=== PATIENT | male | born 1955 | race Caucasian/White ===

== ENCOUNTER 2018-05-17 06:20 | Inpatient (IN) ==
[2018-05-17] MEDS ORDERED: CeFAZolin Syr 2,000MG/20 ML 2,000 MG/20 ML SYRINGE IVPB ONE (06:57)
[2018-05-17] MEDS ORDERED: Ringers Solution, Lactated 1,000 ML IVC SCH ×2 (07:00→11:25)
[2018-05-17] MEDS ORDERED: Acetaminophen IV 1,000 MG/100 ML INFUS..BTL ONE (07:03)
[2018-05-17] MEDS ORDERED: Lidocaine -MPF 2% 2 ML VIAL ONE ×2 (07:06→07:22)
[2018-05-17] MEDS ORDERED: *HR* Rocuronium Bromide 50 MG/5 ML VIAL ONE ×2 (07:06→07:13)
[2018-05-17] MEDS ORDERED: Lidocaine -MPF 4% 5 ML AMPUL ONE (07:06)
[2018-05-17] MEDS ORDERED: *HR* Succinylcholine 200 MG/10 ML VIAL IVP ONE ×2 (07:06→07:13)
[2018-05-17] MEDS ORDERED: *HR* Midazolam HCl 2 MG/2 ML VIAL ONE (07:08)
[2018-05-17] MEDS ORDERED: *HR* FentaNYL (PF) 100 MCG/2 ML VIAL ONE ×2 (07:08→08:30)
[2018-05-17] MEDS ORDERED: *HR* Propofol 200 MG/20 ML VIAL IVP ONE (07:09)
[2018-05-17] MEDS ORDERED: Celecoxib 100 MG CAPSULE PO ONE (07:13)
[2018-05-17] MEDS ORDERED: diazePAM 5 MG TABLET PO ONE (07:16)
[2018-05-17] MEDS ORDERED: Gabapentin 300 MG CAPSULE PO ONE (07:16)
[2018-05-17] MEDS ORDERED: Dexamethasone 4 MG/ML VIAL ONE (07:17)
[2018-05-17] MEDS ORDERED: Acetaminophen IV 1,000 MG/100 ML INFUS..BTL IVPB ONE (07:17)
[2018-05-17] MEDS ORDERED: *HR* Methadone 10 MG TABLET PO ONE (07:17)
[2018-05-17] MEDS ORDERED: Ondansetron 4 MG/2 ML VIAL ONE (07:17)
--- NOTE | 2018-05-17 07:20 | Anesthesia Evaluation PreOp ---
Date of Encounter: 05/17/18 Time of Encounter: 07:18 - Past History Planned Operation: RIGHT SACRO-ILLIAC JOINT FUSION Cardiac History: HTN (LISINOPRIL 10 MG PRN) Pulmonary History: Denies Any Significant HX SISAL OPERATOR History: Other (CHRONIC BACK PAIN, DILAUDID INTRATHECAL PUMP, RIGHT LE WEAKNESS) Anesthesia History: No Prior Anesthetic Complications, Past Anesthesia Alcohol Use: none Drug use: none Medications and Allergies Gabapentin [Neurontin] 600 mg PO DAILY 05/17/18 [History] HYDROcodone/Acet 10/325 mg [[place] 10-325 mg] 10 mg PO QID PRN 05/17/18 [History] Tadalafil [Cialis] 5 mg PO DAILY 05/17/18 [History] Allergy/AdvReac Type Severity Reaction Status Date / Time duloxetine [From Cymbalta] AdvReac See Verified 05/05/18 10:28 Comments gabapentin [From Neurontin] AdvReac Gastrointestinal Verified 05/05/18 10:28 Upset NSAIDS (Non-Steroidal AdvReac Gastrointestinal Verified 05/05/18 10:28 Anti-Inflamma Upset pregabalin [From Lyrica] AdvReac See Verified 05/05/18 10:28 Comments - Meds/Allergy Pre-op Review Medications Reviewed: Yes Allergies Reviewed: Yes Beta Blockers on Current Med List: No Anesthesia Results - Labs Laboratory Tests 10/27/15 03/23/18 05/05/18 09:26 14:02 10:28 Hgb 16.2 Plt Count 201 Potassium Creatinine Hemoglobin A1c 6.0 H Calcium 9.6 05/05/18 10:28 Hgb Plt Count Potassium 4.3 Creatinine 0.95 Hemoglobin A1c Calcium Anesthesia Exam O2 Sat Height 1.83 m Height 1.83 m Weight 101.151 kg Weight 101.151 kg O2 Sat by Pulse Oximetry 94 O2 Sat by Pulse Oximetry 94 Vital Signs Temp Pulse Resp BP Pulse Ox 97.9 F 70 18 159/101 94 05/17/18 06:55 05/17/18 06:55 05/17/18 06:55 05/17/18 06:55 05/17/18 06:55 NPO (# of Hours): 8 Pain Scale Used: Numeric (1 - 10) (8 WITH ASSOCIATED MUSCLE SPASMS) - HEENT Mallampati: II (BEARDED) Teeth: Normal Oral Opening: Greater than 3 - SISAL OPERATOR LOC: Oriented (PATIENT APPEARS TO BE IN PAIN) SISAL OPERATOR Motor: Normal RUE, Normal LUE, Normal LLE, Normal Face, Deficit RLE (3/5 L5 DEFICIT) - Cardiac Rhythm: Regular - Pulmonary Breath Sounds: bilateral Clear Respiratory Effort: Symmetrical Anesthesia Assess/Plan ASA Score: 3 Anesthetic Plan: General Monitoring Plan: Standard Monitors Recovery Plan: PACU Anes Supervising Prov Stmt: CHALLENGING POST OPERATIVE PAIN CONTROL Patient informed and consented. Risks, benefits, and alternatives discussed. Patient wishes to proceed.
--- NOTE | 2018-05-17 07:39 | History & Physical Report ---
Date of Encounter: 05/17/18 Time of Encounter: 07:38 24 Hour HP Update - Instructions Instructions: If the History and Physical is less than 30 days old and was completed prior to A.M. admission and or procedure and has NOT been updated on calendar day of procedure please complete this update prior to performing procedure. - Update Patient reports changes in Medical Condition: No Changes in examination, assessment, or condition: No Preop tests/diagnostics Reviewed: Yes Pre-Op MRSA Screen: Negative Surgery Remains Indicated: Yes Consent for Planned Operative Procedure(s) Verified: Yes - Pre-Operative Checklist Preoperative Checklist Indicated: No Prophylactic Antibiotic Ordered: Yes Home Medications Include Beta Thierry: No Beta Thierry Taken Today (Day of Surgery): No Beta Thierry Taken Yesterday (Day Prior to Surgery): No Is VTE Prophylaxis Indicated?: Yes
[2018-05-17] MEDS ORDERED: Bacitracin 50,000 UNIT, Polymyxin B Sulfate 500,000 UNIT, Sodium Chloride IRRigation 1,... IR ONE (07:45)
[2018-05-17] MEDS ORDERED: *HR* HYDROmorphone 2 MG/ML SYRINGE ONE (08:04)
[2018-05-17] MEDS ORDERED: *HR* Labetalol 20 MG/4 ML SYRINGE IVP PRN (08:16)
[2018-05-17] MEDS ORDERED: *HR* Meperidine 25 MG/ML SYRINGE IVP PRN (08:16)
[2018-05-17] MEDS ORDERED: Ondansetron 4 MG/2 ML VIAL IVP ONE (08:16)
[2018-05-17] MEDS ORDERED: *HR* OxyCODONE Immed Rel 5 MG TABLET PO PRN (08:16)
[2018-05-17] MEDS ORDERED: *HR* Promethazine 25 MG/ML VIAL IVP PRN (08:16)
--- NOTE | 2018-05-17 09:27 | Orthopedic Operative Note ---
Date of procedure: 05/17/18 Pre-op diagnosis: Sacroiliac dysfunction Operation/Findings: Sacroiliac fusion right: The patient was brought to the operative theater where he underwent general endotracheal anesthesia. He was given antibiotics prior to the start of procedure. Compression boots and stockings were used for deep vein thrombosis prophylaxis. The patient was placed prone on a Ion table. The back was prepped and draped in usual sterile fashion. We made a 4 cm incision on the lateral aspect of the right ilium. We then performed an open dissection through the subcutaneous ,muscular and fascia tissue down to the bony ilium. Using inlet, lateral, and outlet fluoroscopy, a sharp guide pin was placed across the right SI joint using radiolucent clamp and mallet. A cannulated T- handle tissue dissector was placed over the pin to spread over the bony pelvis. Soft tissue protector was placed over the guidepin. After confirming the desire projectory on inlet, outlet, and lateral views, the measurement of implant length was used and selected. The pin sleeve was removed as well as soft tissue protector and a cannulated drill was placed over the guidepin. The guidepin was impacted a few millimeters past the SI joint on the right to create a channel for press fitting the implant. After the broach was removed with a SLAP hammer the implant was inserted Bullett knows first over the guidepin down the soft tissue protector working cannula and then was inserted across the SI joint with the impactor and mallet. The size of the first implant was 60 mm x 7 mm. We left a sharp guide pin in place and subsequently placed a parallel pin guide. The short barrel was placed over the existing pin in the new pin was placed through the long barrel and docked onto the ilium. We used the parallel pin guide to subsequently place to Hockley nosed implants using standard instruments and procedures as done for the first implant. The implants were placed into the sacrum and ilium across the right SI joint. The size of these implants were 45 mm x 7.0 mm and 40 mm x 7.0 mm respectively. This left a total of 3 Hockley nosed grafts across the SI joint. Final AP and inlet and outlet fluorographic views were obtained. We then copiously irrigated the wound and closed the wound in layers with 2-0 Vicryl for the subcutaneous tissue, and Dermabond was used for skin closure. Sterile dressings were placed over the wound. The patient was turned supine in the hospital bed and extubated. All sponge needles and instrument counts were correct at the end of the procedure. The patient tolerated the procedure well without complications. Anesthesia: JACKSON Surgeon: Cali Murrell Jr Was there an public services assistant present: No Estimated blood loss (cc): 30 Specimen: None Condition: stable Disposition: PACU
[2018-05-17] MEDS: *HR* HYDROmorphone (PF) 1 MG/ML SYRINGE IVP PRN ×4 (09:55→10:50)
[2018-05-17] MEDS ORDERED: *HR* HYDROmorphone (PF) 1 MG/ML SYRINGE ONE (11:12)
[2018-05-17] MEDS ORDERED: Ondansetron 4 MG/2 ML VIAL IVP PRN (11:25)
[2018-05-17] MEDS ORDERED: Acetaminophen 325 MG TABLET PO PRN (11:25)
[2018-05-17] MEDS ORDERED: Naloxone 0.4 MG/ML INJ IVP PRN (11:25)
--- NOTE | 2018-05-17 13:55 | Anesthesia Evaluation Post Op ---
Date of Encounter: 05/17/18 Time of Encounter: 11:09 - Discharge PostOp Status: Transfer Patient to floor (Patient's vital signs have been reviewed. Patient is stable postoperatively and has adequately recovered from anesthesia. Patient is determined to have stable airway patency and respiratory function including respiratory rate and oxygen saturation. Patient has a stable heart rate, blood pressure and adequate hydration. Patients mental status is acceptable. Patients temperature is appropriate. Pain and nausea are adequately controlled.)
[2018-05-17] MEDS: *HR* OxyCODONE Immed Rel 5 MG TABLET PO PRN ×2 (15:04→19:54)
[2018-05-17] MEDS: *HR* HYDROcodone/Acet 5/325 mg TABLET PO PRN (22:41)
[2018-05-18] MEDS: *HR* OxyCODONE Immed Rel 5 MG TABLET PO PRN ×4 (00:58→15:43)
[2018-05-18] MEDS: *HR* HYDROcodone/Acet 5/325 mg TABLET PO PRN (04:19)
[2018-05-18] MEDS ORDERED: Gabapentin 300 MG CAPSULE PO SCH (09:00)
[2018-05-18 14:52] VITALS: BP 163/91
--- NOTE | 2018-05-18 15:06 | Discharge Summary ---
- NOTES TO OUTPATIENT PROVIDER Notes to Outpatient Provider: Follow-up in [facility] in 2 weeks Date of Encounter: 05/18/18 Time of Encounter: 15:03 - Discharge Diagnosis (1) Sacroiliac dysfunction Priority: Primary Status: Chronic - Hospital Course Hospital course: Mr. Schaefer is a 62 year old male The patient had an uneventful postoperative course. Progressed from intravenous analgesic needs to oral analgesic needs only. Remained neurovascularly intact and mobilized satisfactorily. All intraoperative and/or postoperative radiographic studies were satisfactory. Patient is discharged with plan for rehabilitation and follow-up in 2 weeks post discharge on analgesic medication and patient's home medications. - Time Spent with Patient Total time spent providing and/or coordinating discharge services: - Discharge Medications Prescriptions: OxyCODONE Immed Rel [Roxicodone 5 MG] 10 mg PO Q4HR PRN 7 Days #30 tablet PRN Reason: Severe Pain Home Medications: Gabapentin [Neurontin] 600 mg PO DAILY 05/17/18 [History] Hydromorphone (Pf) [Hydromorphone Intrathecal Pump] 1 each IT AD 05/17/18 [History] OxyCODONE/APAP 10/325 [Percocet 10/325 MG] 1 tab PO Q6H PRN 05/17/18 [History] Tadalafil [Cialis] 5 mg PO DAILY 05/17/18 [History] OxyCODONE Immed Rel [Roxicodone 5 MG] 10 mg PO Q4HR PRN 7 Days #30 tablet 05/18/18 [Rx] Allergies/Adverse Reactions: Allergy/AdvReac Type Severity Reaction Status Date / Time duloxetine [From Cymbalta] AdvReac See Verified 05/17/18 14:54 Comments gabapentin [From Neurontin] AdvReac Gastrointestinal Verified 05/17/18 14:54 Upset NSAIDS (Non-Steroidal AdvReac Gastrointestinal Verified 05/17/18 14:54 Anti-Inflamma Upset pregabalin [From Lyrica] AdvReac See Verified 05/17/18 14:54 Comments Date of admission: 05/17/18 08:22 Primary care physician: Luis F Tate MD Consults: 05/17/18 11:25 Consult to Occupational Therapy [CONS] Routine Comment: Evaluate, develop and implement POC Reason for Consult: Postoperative rehabilitation Does patient have active BEDREST order?: No Is patient medically & hemodynamically stable?: Yes Patient assessed for mobility or mobilized this visit?: No Consult to Physical Therapy [CONS] Routine Comment: Evaluate, develop and implement POC Reason for Consult: Postoperative rehabilitation Does patient have active BEDREST order?: No Is patient medically & hemodynamically stable?: Yes Patient assessed for mobility or mobilized this visit?: No Consult to Spine Navigator [CONS] [CONS] Routine - Impressions ITS Impressions Fluoroscopy 05/17/18 08:00 IMPRESSION: Documentation of intraprocedural fluoroscopic usage as above. Please refer to the procedure report for additional information. D/ : / 05/17/2018 09:21:59 Babak Up MD / hilda Interpreting Provider: Babak Up MD Joint X-Ray 05/17/18 08:00 IMPRESSION: Documentation of intraprocedural fluoroscopic usage as above. Please refer to the procedure report for additional information. D/ : / 05/17/2018 09:21:59 Babak Up MD / hilda Interpreting Provider: Babak Up MD - Patient Status Disposition: Home, Self-Care Condition: Good Functional capacity at discharge: uses cane/walker Overall status at discharge: patient is progressing back to baseline - Discharge Instructions Follow Up With: Rosenda Cha PAC [Physician Sludge Control Attendant] - 05/30/18 10:30 am Luis F Tate MD [Primary Care Provider] - - Diet and Activity Activity: as per physical therapy Diet: advance to your usual diet
== END 2018-05-18 15:54 | disposition home or self-care (01) | DRG 460 ==
LOC: SAMDAY 06:20 → 3NENU 08:22
PROVIDERS: ADMIT Orthopaedic Surgery Orthopaedic Surgery of the Spine; ATTEND Orthopaedic Surgery Orthopaedic Surgery of the Spine